=== PATIENT | male | born 1950 | race Caucasian/White ===

== ENCOUNTER → 2021-06-23 14:02 | Outpatient (CLI) | payer MEDICARE, SELFPAY ==
--- NOTE | 2021-06-23 14:07 | MR_ITS ---
PROCEDURE: MR SHOULDER LT WO CON CLINICAL INDICATION: LEFT SHOULDER PAIN COMPARISON: No exams were available for comparison TECHNIQUE: Routine multiplanar multi echo sequences are performed without gadolinium enhancement. FINDINGS: Some of the images are degraded due to motion artifact. Full-thickness partial width tear of the anterior fibers of the supraspinatus is noted. Supraspinatus tendinopathy. There is no significant muscle atrophy noted. The infraspinatus, teres minor and subscapularis are intact. The biceps tendon is intact. This fluid is noted in the bicipital groove. Moderate amount of fluid is noted in the subscapularis bursa. Fluid is noted in the subacromial/subdeltoid bursa. Non arthrographic images of the labrum demonstrate no evidence of labral tears. Bone marrow signal intensity is within normal limits of the in the out evidence of marrow infiltrative process. Moderate acromioclavicular joint degenerative changes. IMPRESSION: Images are slightly degraded due to motion artifact. Full-thickness partial width tear of the anterior fibers of supraspinatus. No evidence of muscle atrophy. Subacromial/subdeltoid bursitis. Biceps tenosynovitis. Dictated by: Lakisha Deutsch 06/23/2021 15:44 Lakisha Deutsch in [place] 06/23/2021 15:44
== END ==
PROVIDERS: PCP Family Medicine; Visit Provider Orthopaedic Surgery
DX: M25.512 Pain in left shoulder (principal)
CPT/HCPCS: 73221

== ENCOUNTER 2023-02-14 19:34 | Emergency (ER) | payer MEDICARE, OTHER, SELFPAY ==
[2023-02-14] VITALS (8 sets, daily range): BP systolic 120–158; BP diastolic 67–94; PULSE 55–82; RESP 16; TEMP 36.8; O2SAT 95–99; BMI 26.4
--- NOTE | 2023-02-14 19:47 | ECG_ITS ---
APPROVED REPORT Exam: Resting ECG HR:62 bpm ECG Measurements Heart Rate 62 AXES NE 194 P 64 QRSd 92 QRS -31 QT 376 T 65 QTc 382 Conclusion SINUS RHYTHM LEFT AXIS DEVIATION [QRS AXIS < -30] ABNORMAL ECG UNCONFIRMED REPORT Electronically signed by : Abbe Guido MD 02/15/2023 17:19:35
--- NOTE | 2023-02-14 19:53 | CT_ITS ---
PROCEDURE INFORMATION: Exam: CT Head Without Contrast Exam date and time: 02/14/2023 8:10 PM Age: 73 years old Clinical indication: Weakness, extremity; Patient HX: Weakness, fatigue w RITTER; Additional info: Syncope TECHNIQUE: Imaging protocol: Computed tomography of the head without contrast. Radiation optimization: All CT scans at this facility use at least one of these dose optimization techniques: automated exposure control; mA and/or kV adjustment per patient size (includes targeted exams where dose is matched to clinical indication); or iterative reconstruction. REPORTING DATA: Count of CT and Cardiac NM exams in prior 12 months: This patient has received 0 known CTs and 0 known cardiac nuclear medicine studies in the 12 months prior to the current study. COMPARISON: No relevant prior studies available. FINDINGS: Brain: Normal. No hemorrhage. Unremarkable white matter. No mass effect. Cerebral ventricles: No ventriculomegaly. Paranasal sinuses: Visualized sinuses are unremarkable. No fluid levels. Mastoid air cells: Visualized mastoid air cells are well aerated. Bones/joints: Unremarkable. No acute fracture. Soft tissues: Unremarkable. Vasculature: Dense appearing left MCA best seen on image 24 of series 3. IMPRESSION: Dense appearing left MCA which may represent partial thrombosis versus physiologic. Recommend further evaluation with CT angiogram of the head neck to evaluate for cerebrovascular patency. THIS REPORT CONTAINS FINDINGS THAT MAY BE CRITICAL TO PATIENT CARE. The findings were verbally communicated via telephone conference with Ziggy Will (ED) at 9:20 PM EDT on 02/14/2023. The findings were acknowledged and understood.
[2023-02-14 20:02] LABS: Basophils # 0.1 K/mm3 (0-0.2); Eosinophils # 0.3 K/mm3 (0.0-0.4); Eosinophils % 2.3 % (0.1-12.0); Hematocrit 47.7 % (42.0-52.0); Hemoglobin 15.4 g/dL (14.1-18.0); Lymphocytes # 0.9 K/mm3 (0.7-4.5); Lymphocytes % 8.2 % (10-50); Mean Corpuscular HGB Conc 32.3 g/dL (31.8-35.4); Mean Corpuscular Hemoglobin 31.3 pg (27.0-31.2); Mean Corpuscular Volume 97.1 fl (80-94); Mean Platelet Volume 7.3 fl (7.4-10.4); Monocytes # 0.3 K/mm3 (0.1-1.0); Monocytes % 2.6 % (1.7-9.3); Neutrophils # 9.6 K/mm3 (1.8-7.8); Neutrophils % 85.8 % (37.0-80.0); Platelet Count 394 K/mm3 (142-424); Red Blood Count 4.91 M/mm3 (4.60-6.20); Red Cell Distribution Width 13.3 % (11.5-17.5); White Blood Count 11.2 K/mm3 (4.8-10.8)
[2023-02-14 20:06] LABS: Alanine Aminotransferase 16 U/L (12-78); Albumin Level 4.5 g/dl (3.5-5.0); Albumin/Globulin Ratio 1.6 (1.1-1.8); Alkaline Phosphatase 93 U/L (38-126); Anion Gap 12.3 mEq/L (5-15); Aspartate Amino Transferase 24 U/L (17-59); Bilirubin,Total 0.5 mg/dl (0.2-1.3); Blood Urea Nitrogen 19 mg/dl (9-20); Calcium 8.6 mg/dl (8.4-10.2); Carbon Dioxide 26 mmol/L (22.0-30.0); Chloride 103 mmol/L (98-107); Creatinine Clearance Estimated 54 mL/min (50-200); Estimated Glomerular Filt Rate 49 ml/min (>60); GFR (African American) 60 ML/MIN (>60); Globulin 2.9 g/dL (1.3-3.2); Glucose 105 mg/dl (74-100); Potassium 4.3 mmoL/L (3.5-5.1); Sodium 137 mmol/L (136-145); Total Protein,Serum 7.4 g/dl (6.3-8.2)
[2023-02-14 20:11] LABS: MANUAL DIFFERENTIAL MANUAL DIFFERENTIAL (MANUAL DIFF)
[2023-02-14 20:32] LABS: Troponin I < 0.01 ng/ml (0.00-0.034)
--- NOTE | 2023-02-14 20:44 | HMH.EDDIZZ ---
Discharge Plan Disposition Patient Disposition: Home, Self-Care Chief Complaint: Dizziness Prescriptions Prescriptions: No Action amlodipine 2.5 mg tablet 2.5 mg PO DAILY Label Comments: TAKE 1 TABLET BY MOUTH EVERY DAY meloxicam 7.5 mg tablet 7.5 mg PO BID Label Comments: TAKE 1 TABLET BY MOUTH 1 TO 2 TIMES DAILY citalopram 20 mg tablet 20 mg PO DAILY Label Comments: TAKE 1 TABLET BY MOUTH EVERY DAY Referrals Follow up/Referrals: Estephania Gonzalez [Primary Care Provider] - See instructions Vincenzo Szymanski MD [Staff Physician] - See instructions Clinical Impressions Clinical Impression: Near syncope Instructions Patient Instructions: Fainting Discharge ED Provider: Nicolette (ED),Ziggy Fung Dizzy HPI General Chief Complaint: Dizziness Stated Complaint: Dizzy, weakness Time Seen by Provider: 02/14/23 20:44 Mode of Arrival: Ambulatory Source of Information: Patient, Relative and Medical Record Limitations: No Limitations Description of Symptoms (Recalled from ER Triage Doc. by RN): pt states was sitting at table and got dizziness and sweaty, pt was lower to floor. pt c/o weakness and Rob[place] History of Present Illness HPI Narrative: sitting at restaurant and suddenly became weak and felt faint and sweaty but no loc and ems there and glu reported as 91 -feels chills but had not been sick prior and no viral illness - no focal neuro sx complaint: lightheadedness and near syncope Onset (ago): hour(s) Timing: sudden onset Description: lightheadedness and near-syncope History of similar episodes: Yes History of trauma: No Severity: moderate Associated symptoms: denies other symptoms Related Data Home Medications Medication Instructions Recorded Confirmed amlodipine 2.5 mg tablet 2.5 mg PO DAILY High blood pressure 02/14/23 02/14/23 citalopram 20 mg tablet 20 mg PO DAILY Depression 02/14/23 02/14/23 meloxicam 7.5 mg tablet 7.5 mg PO BID Pain 02/14/23 02/14/23 Allergies Allergy/AdvReac Type Severity Reaction Status Date / Time No Known Allergies Allergy Verified 02/14/23 19:52 [facility] Disclaimer: The information contained in this section may have been updated after the patient was seen, as this information can be updated by other users. Social History Smoking Status: Never smoker alcohol intake: never current occupational status: retired Travel in the last 8 weeks: None ROS Obtained: Yes All systems reviewed & no additional complaints except as documented Physical Exam General General appearance: alert Head Head exam: normocephalic Eye Eye exam: Present PERRL and EOMI; Absent nystagmus ENT ENT exam: Present mucous membranes moist, TM's normal bilaterally and other (no evid of tongue biting ) Neck Neck exam: Present trachea midline Respiratory Respiratory exam: Absent respiratory distress Cardiovascular Cardiovascular exam: Present regular rate and systolic murmur Abdominal Exam Abdominal exam: Present soft Extremities Exam Extremities exam: Present full ROM Neurological Exam Neurological exam: Present alert, oriented X3 and CN II-XII intact; Absent motor sensory deficit Psychiatric Psychiatric exam: Present normal affect Skin Skin exam: Absent rash Medical Decision Making Medical Records Medical records reviewed: Yes I reviewed the patient's medical records. Ari Inquiry Pt receiving controlled substance: No Vital Signs: 02/14/23 19:36 02/14/23 19:56 02/14/23 20:00 Temperature 98.2 F Temperature Source Oral Pulse Rate 55 L Pulse Rate [Right] 62 Respiratory Rate 16 Blood Pressure 131/77 Blood Pressure [Orthostatic Lying] 138/83 Blood Pressure [Orthostatic Sitting] 145/87 H Blood Pressure [Orthostatic Standing] 129/74 Blood Pressure [Right Arm] 158/94 H Blood Pressure Mean [Right Arm] 115 02 Sat by Pulse Oximetry 95 99 Oxygen Delivery Method Room Air 02/14/23 20:30 02/14/23 22:01 02/14/23
[2023-02-14 20:50] LABS: Eosinophils % 6 % (0-3); Lymphocytes % 10 % (10-50); Monocytes % 1 % (2-9); Neutrophils % 80 % (42-76); Total Cells Counted 100
[2023-02-14 20:51] LABS: Platelet Estimate Normal; Spherocytes 1+
[2023-02-14 20:52] LABS: Microcytosis 1+; Poikilocytosis 1+
[2023-02-14 21:03] LABS: Lactic Acid 1.1 mmol/L (0.7-2.1)
--- NOTE | 2023-02-14 21:19 | CT_ITS ---
PROCEDURE INFORMATION: Exam: CTA Head With Contrast, Arteriography Exam date and time: 02/14/2023 9:51 PM Age: 73 years old Clinical indication: Abnormal findings; Abnormal CT of the head; Additional info: Per radiologist TECHNIQUE: Imaging protocol: Computed tomographic angiography of the head with contrast. Exam focused on the arteries. 3D rendering (Not supervised by radiologist): MIP and/or 3D reconstructed images were created by the technologist. Radiation optimization: All CT scans at this facility use at least one of these dose optimization techniques: automated exposure control; mA and/or kV adjustment per patient size (includes targeted exams where dose is matched to clinical indication); or iterative reconstruction. Contrast material: ISOVUE; Contrast volume: 100 ml; Contrast route: INTRAVENOUS (IV); REPORTING DATA: Count of CT and Cardiac NM exams in prior 12 months: This patient has received 2 known CTs and 0 known cardiac nuclear medicine studies in the 12 months prior to the current study. COMPARISON: CT HEAD/BRAIN WO CON 02/14/2023 8:10 PM FINDINGS: ANTERIOR CIRCULATION: Right internal carotid artery: Intracranial segment is patent with no significant stenosis. No aneurysm. Right middle cerebral artery: No occlusion or significant stenosis. No aneurysm. Right anterior cerebral artery: No occlusion or significant stenosis. No aneurysm. Left internal carotid artery: Intracranial segment is patent with no significant stenosis. No aneurysm. Left middle cerebral artery: No occlusion or significant stenosis. No aneurysm. Left anterior cerebral artery: No occlusion or significant stenosis. No aneurysm. POSTERIOR CIRCULATION: Right vertebral artery: No occlusion or significant stenosis. No aneurysm. Left vertebral artery: No occlusion or significant stenosis. No aneurysm. Basilar artery: No occlusion or significant stenosis. No aneurysm. Right posterior cerebral artery: No occlusion or significant stenosis. No aneurysm. Left posterior cerebral artery: No occlusion or significant stenosis. No aneurysm. Brain: No definite mass, mass effect, or midline shift. Cerebral ventricles: No ventriculomegaly. Bones/joints: Moderate loss of intervertebral disc space with degenerative changes at C5 through C7. Soft tissues: Unremarkable. IMPRESSION: No large vessel stenosis or occlusion.
--- NOTE | 2023-02-14 21:19 | CT_ITS ---
PROCEDURE INFORMATION: Exam: CTA Neck With Contrast Exam date and time: 02/14/2023 9:51 PM Age: 73 years old Clinical indication: Abnormal findings; Abnormal CT of the head; Additional info: Per radiologist TECHNIQUE: Imaging protocol: Computed tomographic angiography of the neck with contrast. 3D rendering (Not supervised by radiologist): MIP and/or 3D reconstructed images were created by the technologist. Radiation optimization: All CT scans at this facility use at least one of these dose optimization techniques: automated exposure control; mA and/or kV adjustment per patient size (includes targeted exams where dose is matched to clinical indication); or iterative reconstruction. Contrast material: ISOVUE; Contrast volume: 100 ml; Contrast route: INTRAVENOUS (IV); REPORTING DATA: Count of CT and Cardiac NM exams in prior 12 months: This patient has received 2 known CTs and 0 known cardiac nuclear medicine studies in the 12 months prior to the current study. COMPARISON: CT HEAD/BRAIN WO CON 02/14/2023 8:10 PM FINDINGS: Right common carotid artery: Mild calcific atherosclerotic disease of the right carotid bulb. No occlusion. Right internal carotid artery: No stenosis of the extracranial segment. No dissection or occlusion. Right external carotid artery: No occlusion or stenosis of the origin. Left common carotid artery: Mild calcific atherosclerotic disease of the left carotid bulb. No occlusion. Left internal carotid artery: No stenosis of the extracranial segment. No dissection or occlusion. Left external carotid artery: No occlusion or stenosis of the origin. Right vertebral artery: No stenosis. No dissection or occlusion. Left vertebral artery: No stenosis. No dissection or occlusion. Soft tissues: Normal. No significant soft tissue swelling. Bones/joints: Moderate loss of intervertebral disc space with degenerative changes at C5 through C7. IMPRESSION: No stenosis or occlusion. REFERENCES: NASCET CRITERIA. The degree of stenosis in the cervical segment of the internal carotid artery is based on NASCET criteria. Normal is no stenosis. Mild is less than 50% stenosis. Moderate is 50-69% stenosis. Severe is 70% to 99% stenosis. Total occlusion is no detectable patent lumen.
[2023-02-14 23:03] LABS: Troponin I < 0.01 ng/ml (0.00-0.034)
== END 2023-02-14 23:44 | disposition home or self-care (01) ==
PROVIDERS: Emergency Provider Emergency Medicine; PCP Family Medicine
DX: R55 Syncope and collapse (principal); R42 Dizziness and giddiness; R53.1 Weakness
CPT/HCPCS: 70450; 70496; 70498; 80053; 83605; 84484; 85007; 85025; 87040; 93005; 93225; 93226; 96360; 96361; 99285; Q9967

== ENCOUNTER 2023-05-02 22:43 | Emergency (ER) | payer MEDICARE, OTHER, SELFPAY ==
[2023-05-02 22:44] VITALS: BP 149/78; PULSE 45; RESP 17; TEMP 37; O2SAT 98; BMI 25.8
--- NOTE | 2023-05-02 22:53 | CT_ITS ---
PROCEDURE INFORMATION: Exam: CT Abdomen And Pelvis Without Contrast Exam date and time: 05/02/2023 11:06 PM Age: 73 years old Clinical indication: Abdominal pain; Prior surgery; Surgery date: 6+ months; Surgery type: Cholecystectomy; Patient HX: C/O right lower flank pain; Additional info: Possible kidney stone TECHNIQUE: Imaging protocol: Computed tomography of the abdomen and pelvis without contrast. Radiation optimization: All CT scans at this facility use at least one of these dose optimization techniques: automated exposure control; mA and/or kV adjustment per patient size (includes targeted exams where dose is matched to clinical indication); or iterative reconstruction. REPORTING DATA: Count of CT and Cardiac NM exams in prior 12 months: This patient has received 3 known CTs and 0 known cardiac nuclear medicine studies in the 12 months prior to the current study. COMPARISON: No relevant prior studies available. FINDINGS: Lungs: No focal abnormalities at the lung bases. Liver: Normal. No mass. Gallbladder and bile ducts: Cholecystectomy clips. Pancreas: Normal. No ductal dilation. Spleen: Normal. No splenomegaly. Adrenal glands: Normal. No mass. Kidneys and ureters: Moderate right hydroureteronephrosis. There is a 3.7 mm right mid ureteral stone axial image . Stomach and bowel: Scattered colonic diverticula. Normal appendix. Stomach is filled with fluid and debris. Appendix: See Stomach and bowel finding. Intraperitoneal space: Unremarkable. No free air. No significant fluid collection. Vasculature: The aorta demonstrates mild atherosclerotic calcification. Lymph nodes: Unremarkable. No enlarged lymph nodes. Urinary bladder: Unremarkable as visualized. Reproductive: Moderate prostatomegaly. Prostate calcifications. Prominent seminal vesicles Bones/joints: The lumbar spine demonstrates moderate degenerative changes at multiple levels. Soft tissues: Unremarkable. IMPRESSION: 1. No free air or fluid or adenopathy. 2. Moderate right hydroureteronephrosis. There is a 3.7 mm right mid ureteral stone axial image 3/62. 3. Other (less critical/noncritical/incidental) findings as above; please refer to the body of report for further details.
[2023-05-02 22:59] LABS: Microscopic, Urine URINE MICROSCOPIC (MICROSCOPIC)
[2023-05-02 23:01] VITALS: BP 150/79; PULSE 48; O2SAT 94
[2023-05-02 23:04] LABS: Basophils % 0.7 % (0.1-2.0); Eosinophils # 0.1 K/mm3 (0.0-0.4); Eosinophils % 2.5 % (0.1-12.0); Hematocrit 43.6 % (42.0-52.0); Hemoglobin 13.7 g/dL (14.1-18.0); Lymphocytes # 2.2 K/mm3 (0.7-4.5); Lymphocytes % 38.1 % (10-50); Mean Corpuscular HGB Conc 31.5 g/dL (31.8-35.4); Mean Corpuscular Hemoglobin 30.4 pg (27.0-31.2); Mean Corpuscular Volume 96.4 fl (80-94); Mean Platelet Volume 7.2 fl (7.4-10.4); Monocytes # 0.4 K/mm3 (0.1-1.0); Monocytes % 6.1 % (1.7-9.3); Neutrophils % 52.6 % (37.0-80.0); Platelet Count 367 K/mm3 (142-424); Red Blood Count 4.52 M/mm3 (4.60-6.20); Red Cell Distribution Width 13.4 % (11.5-17.5); White Blood Count 5.7 K/mm3 (4.8-10.8)
[2023-05-02 23:07] LABS: Appearance,Urine CLEAR (Clear); Bilirubin,Urine Negative (Negative); Blood, Urine 1+ (Negative); Color,Urine YELLOW (Yellow); Glucose,Urine (UA) Negative (Negative); Ketones,Urine Negative (Negative); Leukocyte Esterase,Urine Negative (Negative); Nitrate,Urine Negative (Negative); Protein,Urine TRACE (Negative); Specific Gravity, Urine >= 1.030 (1.005-1.030); Urobilinogen,Urine 0.2 EU/dl (0.2)
[2023-05-02 23:08] LABS: Chloride 102 mmol/L (98-107); Potassium 4.3 mmoL/L (3.5-5.1); Sodium 138 mmol/L (136-145)
[2023-05-02 23:11] LABS: Alanine Aminotransferase 23 U/L (12-78); Alkaline Phosphatase 97 U/L (38-126); Anion Gap 12.3 mEq/L (5-15); Aspartate Amino Transferase 29 U/L (17-59); Bilirubin,Total 0.2 mg/dl (0.2-1.3); Blood Urea Nitrogen 22 mg/dl (9-20); Calcium 8.8 mg/dl (8.4-10.2); Carbon Dioxide 28 mmol/L (22.0-30.0); Creatinine Clearance Estimated 53 mL/min (50-200); Estimated Glomerular Filt Rate 49 ml/min (>60); GFR (African American) 60 ML/MIN (>60); Glucose 110 mg/dl (74-100); Lipase 79 U/L (23-300)
[2023-05-02 23:12] LABS: Albumin Level 4.1 g/dl (3.5-5.0); Albumin/Globulin Ratio 1.6 (1.1-1.8); Globulin 2.5 g/dL (1.3-3.2); Total Protein,Serum 6.6 g/dl (6.3-8.2)
[2023-05-02 23:19] LABS: Bacteria,Urine Trace /lpf; Mucus,Urine 2+ /lpf; Squamous Epithelial Cell,Urine Occasional #/hpf (0-5); WBC,Urine Occasional #/hpf (0-3)
--- NOTE | 2023-05-02 23:27 | HMH.EDUROGM ---
Discharge Plan Disposition Patient Disposition: Home, Self-Care Prescriptions Prescriptions: New tamsulosin [Flomax] 0.4 mg capsule 0.4 mg PO DAILY Qty: 14 0RF No Action pantoprazole 40 mg tablet,delayed release (DR/EC) 40 mg PO DAILY Label Comments: TAKE 1 TABLET BY MOUTH EVERY MORNING tadalafil 20 mg tablet 20 mg PO DAILYP PRN (Reason: Erectile Dysfunction) Label Comments: TAKE 1 TABLET BY MOUTH ONCE DAILY NEEDED amlodipine 2.5 mg tablet 2.5 mg PO DAILY Label Comments: TAKE 1 TABLET BY MOUTH EVERY DAY meloxicam 7.5 mg tablet 7.5 mg PO BIDP PRN (Reason: Arthritis ) Label Comments: TAKE 1 TABLET BY MOUTH 1 TO 2 TIMES DAILY citalopram 20 mg tablet 20 mg PO DAILY Label Comments: TAKE 1 TABLET BY MOUTH EVERY DAY Referrals Follow up/Referrals: Estephania Gonzalez [Primary Care Provider] - See instructions Clinical Impressions Clinical Impression: Renal colic on right side Instructions Patient Instructions: DI for Kidney Stones Discharge ED Provider: Nicolette (ED)Ziggy Male Urogenital HPI General Chief complaint: Urogenital-Male Stated complaint: right side and back pain Time Seen by Provider: 05/02/23 23:27 Mode of Arrival: Ambulatory Source of Information: Patient, Spouse and Medical Record Limitations: No Limitations Description of Symptoms (Recalled from ER Triage Doc. by RN): 73 M presents with 1 hour of right flank pain that radiates to his right low back. Denies fever, chills, dysuria, or hematuria. Patient reports history of a kidney stone 10 years ago. History of Present Illness HPI Narrative: acute rt flank pain with hx of kidney stone - no fever rash or trauma Onset (ago): hour(s) Duration: intermittent Location: right flank Severity: moderate Related Data Home Medications Medication Instructions Recorded Confirmed amlodipine 2.5 mg tablet 2.5 mg PO DAILY High blood pressure 02/14/23 05/02/23 citalopram 20 mg tablet 20 mg PO DAILY Mood 02/14/23 05/02/23 meloxicam 7.5 mg tablet 7.5 mg PO BIDP PRN Arthritis 02/14/23 05/02/23 pantoprazole 40 mg tablet,delayed 40 mg PO DAILY Acid reflux 05/02/23 05/02/23 release tadalafil 20 mg tablet 20 mg PO DAILYP PRN Erectile 05/02/23 05/02/23 Dysfunction Previous Rx's Medication Instructions Recorded tamsulosin 0.4 mg capsule (Flomax) 0.4 mg PO DAILY #14 caps 05/03/23 Allergies Allergy/AdvReac Type Severity Reaction Status Date / Time No Known Allergies Allergy Verified 02/14/23 19:52 [facility] Disclaimer: The information contained in this section may have been updated after the patient was seen, as this information can be updated by other users. Social History (Updated 02/14/23 @ 23:37 by Ziggy Will (ED)MD) Smoking Status: Never smoker alcohol intake: never current occupational status: retired Travel in the last 8 weeks: None ROS Obtained: Yes All systems reviewed & no additional complaints except as documented Physical Exam General General appearance: alert Head Head exam: normocephalic Eye Eye exam: Present PERRL and EOMI ENT ENT exam: Present mucous membranes moist Neck Neck exam: Present trachea midline Respiratory Respiratory exam: Absent respiratory distress Cardiovascular Cardiovascular exam: Present regular rate Abdominal Exam Abdominal exam: Present soft; Absent tenderness Extremities Exam Extremities exam: Absent joint swelling Back Exam Back exam: Absent vertebral tenderness Neurological Exam Neurological exam: Present alert, oriented X3 and CN II-XII intact; Absent motor sensory deficit Skin Skin exam: Absent rash Medical Decision Making Medical Records Medical records reviewed: Yes I reviewed the patient's medical records. Ari Inquiry Pt receiving controlled substance: No Vital Signs: 05/02/23 22:44 05/02/23 23:01 05/02/23 23:30 Temperature 98.6 F Temperature Source Oral Pulse Rate 48
[2023-05-02 23:30] VITALS: BP 134/72; PULSE 56; O2SAT 94
[2023-05-03 00:01] VITALS: BP 137/75; PULSE 60; RESP 14; O2SAT 97
[2023-05-03 00:23] VITALS: BP 123/72; PULSE 61; RESP 17; TEMP 37; O2SAT 96
[2023-05-03 00:30] VITALS: BP 148/80; PULSE 62; RESP 20; O2SAT 97
== END 2023-05-03 00:34 | disposition home or self-care (01) ==
PROVIDERS: Emergency Provider Emergency Medicine; PCP Family Medicine
DX: R10.9 Unspecified abdominal pain (principal); N20.1 Calculus of ureter; N13.30 Unspecified hydronephrosis
CPT/HCPCS: 74176; 80053; 81001; 83690; 85025; 96361; 96374; 96375; 96376; 99284; 99285; J2405

== ENCOUNTER 2023-09-24 14:00 | Outpatient (RCR) | payer MEDICARE, OTHER, SELFPAY | END 2023-10-28 11:43 | disposition home or self-care (01) | LOC: PT 14:00 | PROVIDERS: PCP Family Medicine; Visit Provider Orthopaedic Surgery | DX: S83.242A Other tear of medial meniscus, current injury, left knee, initial encounter (principal) | CPT/HCPCS: 97010; 97014; 97110; 97112; 97163; 97530; G0283 ==

== ENCOUNTER 2023-09-29 17:39 | Emergency (ER) | payer MEDICARE, OTHER, SELFPAY ==
[2023-09-29 17:58] VITALS: BP 156/85; PULSE 95; RESP 20; TEMP 36.7; O2SAT 97; BMI 25.1
[2023-09-29 18:05] LABS: Microscopic, Urine URINE MICROSCOPIC (MICROSCOPIC)
[2023-09-29 18:08] LABS: Appearance,Urine CLEAR (Clear); Bilirubin,Urine Negative (Negative); Blood, Urine TRACE-I (Negative); Color,Urine YELLOW (Yellow); Glucose,Urine (UA) Negative (Negative); Ketones,Urine Negative (Negative); Leukocyte Esterase,Urine Negative (Negative); Nitrate,Urine Negative (Negative); Protein,Urine Negative (Negative); Specific Gravity, Urine >= 1.030 (1.005-1.030); Urobilinogen,Urine 0.2 EU/dl (0.2)
--- NOTE | 2023-09-29 18:16 | CT_ITS ---
PROCEDURE INFORMATION: Exam: CT Abdomen And Pelvis With Contrast Exam date and time: 09/29/2023 6:52 PM Age: 73 years old Clinical indication: Abdominal pain; Additional info: R flank rad to groin TECHNIQUE: Imaging protocol: Computed tomography of the abdomen and pelvis with contrast. Radiation optimization: All CT scans at this facility use at least one of these dose optimization techniques: automated exposure control; mA and/or kV adjustment per patient size (includes targeted exams where dose is matched to clinical indication); or iterative reconstruction. Contrast material: ISOVUE; Contrast volume: 75 ml; Contrast route: IV; REPORTING DATA: Count of CT and Cardiac NM exams in prior 12 months: This patient has received 4 known CTs and 0 known cardiac nuclear medicine studies in the 12 months prior to the current study. COMPARISON: CT ABDOMEN PELVIS WO CON 05/02/2023 11:06 PM FINDINGS: Liver: Normal. No mass. Gallbladder and bile ducts: The gallbladder is surgically absent. Pancreas: Normal. No ductal dilation. Spleen: Normal. No splenomegaly. Adrenal glands: Normal. No mass. Kidneys and ureters: On series 3, image 104, there is a 6 mm stone at the right ureterovesical junction producing moderate right hydronephrosis and perinephric edema. No other evidence of urolithiasis. Left kidney appears normal. Stomach and bowel: Unremarkable. No obstruction. No mucosal thickening. Appendix: No evidence of appendicitis. Intraperitoneal space: Unremarkable. No free air. No significant fluid collection. Vasculature: Unremarkable. No abdominal aortic aneurysm. Lymph nodes: Unremarkable. No enlarged lymph nodes. Urinary bladder: Unremarkable as visualized. Reproductive: Unremarkable as visualized. Bones/joints: Slight rightward curvature of the lumbar spine. [id number] degenerative disc changes throughout the lower spine. No vertebral body compression or acute fracture. Soft tissues: Unremarkable. IMPRESSION: 6 mm right UVJ stone producing moderate hydronephrosis
--- NOTE | 2023-09-29 18:17 | HMH.EDGENADL ---
Discharge Plan Disposition Patient Disposition: Home, Self-Care Prescriptions Prescriptions: New oxycodone 5 mg tablet 5 mg PO Q8H PRN (Reason: severe pain) Qty: 6 0RF tamsulosin 0.4 mg capsule 0.4 mg PO Q24H Qty: 14 0RF Rx Instructions: Do not combine with other tamsulosin if you have been previously prescribed. No Action hydrocodone-acetaminophen 5-325 mg tablet 1 tab PO Q6H PRN (Reason: pain) Qty: 15 0RF pantoprazole 40 mg tablet,delayed release (DR/EC) 40 mg PO DAILY Patient Comments: TAKE 1 TABLET BY MOUTH EVERY MORNING tadalafil 20 mg tablet 20 mg PO DAILYP PRN (Reason: Erectile Dysfunction) Patient Comments: TAKE 1 TABLET BY MOUTH ONCE DAILY NEEDED tamsulosin [Flomax] 0.4 mg capsule 0.4 mg PO DAILY Qty: 14 0RF amlodipine 2.5 mg tablet 2.5 mg PO DAILY Patient Comments: TAKE 1 TABLET BY MOUTH EVERY DAY meloxicam 7.5 mg tablet 7.5 mg PO BIDP PRN (Reason: Arthritis ) Patient Comments: TAKE 1 TABLET BY MOUTH 1 TO 2 TIMES DAILY citalopram 20 mg tablet 20 mg PO DAILY Patient Comments: TAKE 1 TABLET BY MOUTH EVERY DAY Referrals Follow up/Referrals: Estephania Gonzalez [Primary Care Provider] - See instructions Activity Restrictions/Add. Instructions Additional Instructions/Restrictions: At this time it was felt you are safe to be discharged home. If new or worsening symptoms please do not hesitate to return the emergency department. Please follow-up with your urologist this week if you are able. Please take Tylenol and ibuprofen for pain control. Please take your medication as prescribed and do not combine opiates. Clinical Impressions Clinical Impression: Calculus of ureterovesical junction (UVJ) Discharge ED Provider: Gilbert Ruiz General Adult HPI General Chief complaint: PAIN Stated complaint: right side pain Time Seen by Provider: 09/29/23 18:00 Mode of Arrival: Ambulatory Source of Information: Patient Limitations: No Limitations Description of Symptoms (Recalled from ER Triage Doc. by RN): pt to ed c/o right flank pain. pt reports a hx of kidney stones. pt denies visible blood in his urine. History of Present Illness HPI narrative: Patient is a 73-year-old male with past medical history of previous kidney stones who presents emergency department for evaluation of flank pain. Onset was acute, earlier this afternoon, right flank radiating into his groin. No dysuria, no chest pain, no other acute complaints at this time. Related Data Home Medications Medication Instructions Recorded Confirmed amlodipine 2.5 mg tablet 2.5 mg PO DAILY High blood pressure 02/14/23 05/02/23 citalopram 20 mg tablet 20 mg PO DAILY Mood 02/14/23 05/02/23 meloxicam 7.5 mg tablet 7.5 mg PO BIDP PRN Arthritis 02/14/23 05/02/23 pantoprazole 40 mg tablet,delayed 40 mg PO DAILY Acid reflux 05/02/23 05/02/23 release tadalafil 20 mg tablet 20 mg PO DAILYP PRN Erectile 05/02/23 05/02/23 Dysfunction Previous Rx's Medication Instructions Recorded hydrocodone 5 mg-acetaminophen 325 1 tab PO Q6H PRN pain #15 tabs 05/03/23 mg tablet tamsulosin 0.4 mg capsule (Flomax) 0.4 mg PO DAILY #14 caps 05/03/23 oxycodone 5 mg tablet 5 mg PO Q8H PRN severe pain #6 tabs 09/29/23 tamsulosin 0.4 mg capsule 0.4 mg PO Q24H kidney stone #14 09/29/23 caps Allergies Allergy/AdvReac Type Severity Reaction Status Date / Time No Known Allergies Allergy Verified 02/14/23 19:52 [facility] Disclaimer: The information contained in this section may have been updated after the patient was seen, as this information can be updated by other users. Social History (Updated 02/14/23 @ 23:37 by Ziggy Will (ED)MD) Smoking Status: Never smoker alcohol intake: never current occupational status: retired Travel in the last 8 weeks: None ROS Obtained: Yes Systems reviewed as appropriate & no additional complaints except as do
[2023-09-29 18:20] LABS: RBC,Urine Occasional #/hpf (0-3); Squamous Epithelial Cell,Urine Occasional #/hpf (0-5)
[2023-09-29 18:31] LABS: Basophils % 0.6 % (0.1-2.0); Eosinophils # 0.2 K/mm3 (0.0-0.4); Eosinophils % 3.7 % (0.1-12.0); Hematocrit 40.7 % (42.0-52.0); Hemoglobin 13.8 g/dL (14.1-18.0); Lymphocytes # 1.6 K/mm3 (0.7-4.5); Lymphocytes % 28.6 % (10-50); Mean Corpuscular Hemoglobin 32.9 pg (27.0-31.2); Mean Corpuscular Volume 96.9 fl (80-94); Mean Platelet Volume 7.6 fl (7.4-10.4); Monocytes # 0.3 K/mm3 (0.1-1.0); Monocytes % 5.4 % (1.7-9.3); Neutrophils # 3.4 K/mm3 (1.8-7.8); Neutrophils % 61.7 % (37.0-80.0); Platelet Count 293 K/mm3 (142-424); Red Cell Distribution Width 13.3 % (11.5-17.5); White Blood Count 5.5 K/mm3 (4.8-10.8)
[2023-09-29 18:32] LABS: Chloride 108 mmol/L (98-107); Potassium 4.3 mmoL/L (3.5-5.1); Sodium 139 mmol/L (136-145)
[2023-09-29 18:34] LABS: Alanine Aminotransferase 18 U/L (12-78); Aspartate Amino Transferase 27 U/L (17-59); Blood Urea Nitrogen 19 mg/dl (9-20); Creatinine Clearance Estimated 60 mL/min (50-200); Estimated Glomerular Filt Rate 59 ml/min (>60); GFR (African American) 71 ML/MIN (>60)
[2023-09-29 18:35] LABS: Albumin Level 4.1 g/dl (3.5-5.0); Albumin/Globulin Ratio 1.5 (1.1-1.8); Alkaline Phosphatase 82 U/L (38-126); Anion Gap 7.3 mEq/L (5-15); Calcium 8.6 mg/dl (8.4-10.2); Carbon Dioxide 28 mmol/L (22.0-30.0); Globulin 2.7 g/dL (1.3-3.2); Glucose 106 mg/dl (74-100); Lactic Acid 0.7 mmol/L (0.7-2.1); Lipase 127 U/L (23-300); Total Protein,Serum 6.8 g/dl (6.3-8.2)
[2023-09-29 18:36] LABS: Bilirubin,Total < 0.1 mg/dl (0.2-1.3)
--- NOTE | 2023-09-29 19:45 | PC.NURSE ---
Pt given a blanket and pillow. Pt resting. CR
[2023-09-29 20:10] VITALS: BP 160/98; PULSE 88; RESP 20; TEMP 36.8
== END 2023-09-29 20:28 | disposition home or self-care (01) ==
PROVIDERS: Emergency Provider Emergency Medicine; PCP Family Medicine
DX: N13.0 Hydronephrosis with ureteropelvic junction obstruction (principal); R10.31 Right lower quadrant pain
CPT/HCPCS: 74177; 80053; 81001; 83605; 83690; 85025; 96361; 96374; 96375; 99284; J0131; Q9967